=== PATIENT | female | born 1930 | race Caucasian/White ===

== ENCOUNTER 2017-07-27 13:52 | Emergency (ER) | payer MEDICARE ==
[2017-07-27] MEDS ORDERED: Meclizine 25 MG Tab PO ONE (14:18)
--- NOTE | 2017-07-27 14:20 | EDM.PDOC ---
ED HPI GENERAL MEDICAL PROBLEM - General Stated Complaint: DIZZY SPELL Time Seen by Provider: 07/27/17 13:52 Source of Information: Reports: Patient, Family History Limitations: Reports: No Limitations - History of Present Illness INITIAL COMMENTS - FREE TEXT/NARRATIVE: 87 y.o.w.f with a h/o Vertigo was standing at an auction for about 30 min and felt sudden dizzy and past suresh out. Pt did no have LOC. No injuries as the bystanders helped her to sit on a chair. Pt take every morning her meclicine, however, not today. After the event, pt was sitting for a while in the chair till her family brought her the the ed. On arrival, the pt was basically in her usual state of tracie. She was ambulating independent to the ed without help. No N/V/D or any other acute medical issue. BP 168/79 RR 15 Temp 97.5 O2 sat 99 % on RA Pulse 82 Onset Date: 07/27/17 Onset Time: 11:00 Duration: Hour(s): Location: Reports: Generalized Quality: Reports: Same as Previous Episode (5 years ago) Severity: Mild Improves with: Reports: Rest Worsens with: Reports: Movement Context: Reports: Other (standing for 30 min) Associated Symptoms: Reports: Syncope (near syncope) - Related Data Allergies Allergy/AdvReac Type Severity Reaction Status Date / Time No Known Allergies Allergy Verified 07/27/17 14:25 Home Meds: Home Meds Aspirin [Children's Aspirin] 81 mg PO DAILY 01/08/14 [History] Levothyroxine 75 mcg PO DAILY 01/08/14 [History] Multivit-Min/FA/Lycopene/Lut [Centrum Silver] 1 tab PO DAILY 01/08/14 [History] Meclizine [Antivert] 25 mg PO DAILY PRN #30 tablet 07/27/17 [Rx] Meclizine [Antivert] 25 mg PO DAILY PRN #30 tablet 07/27/17 [Rx] Sulfamethoxazole/Trimethoprim [Bactrim Ds Tablet] 1 each PO BID #20 tablet 07/28 [Rx] Social & Family History - Tobacco Use Smoking Status *Q: Never Smoker - Alcohol Use Days Per Week of Alcohol Use: 0 - Recreational Drug Use Recreational Drug Use: No - Living Situation & Occupation Living situation: Reports: Occupation: Retired ED ROS GENERAL - Review of Systems Review Of Systems: See Below Constitutional: Reports: No Symptoms HEENT: Reports: No Symptoms Respiratory: Reports: No Symptoms Cardiovascular: Reports: No Symptoms Endocrine: Reports: No Symptoms GI/Abdominal: Reports: No Symptoms : Reports: No Symptoms Musculoskeletal: Reports: No Symptoms Skin: Reports: No Symptoms Neurological: Reports: Syncope Psychiatric: Reports: No Symptoms Hematologic/Lymphatic: Reports: No Symptoms Immunologic: Reports: No Symptoms - Physical Exam Exam: See Below Exam Limited By: No Limitations General Appearance: Alert, WD/WN, Mild Distress Eye Exam: Bilateral Eye: Nystagmus (Peripherial nystagmus) Ears: Normal External Exam Nose: Normal Inspection Throat/Mouth: Normal Inspection, Normal Lips Head Exam: Atraumatic, Normocephalic Neck: Normal Inspection, Supple, Non-Tender Respiratory/Chest: No Respiratory Distress, Lungs Clear Cardiovascular: Normal Peripheral Pulses, Regular Rate, Rhythm, No Edema, No Gallop, No JVD, No Murmur, No Rub GI/Abdominal: Normal Bowel Sounds, Soft, Non-Tender, No Organomegaly, No Distention, No Abnormal Bruit, No Mass (Female) Exam: Deferred Rectal (Female) Exam: Deferred Neuro Exam (Abbreviated): Alert, Oriented, CN II-XII Intact, Normal Cognition, Normal Gait, No Motor/Sensory Deficits Back Exam: Normal Inspection, Full Range of Motion Extremities: Normal Inspection, Normal Range of Motion, Non-Tender, No Pedal Edema, Normal Capillary Refill Psychiatric: Normal Affect, Normal Mood Skin Exam: Warm, Dry, Intact, Normal Color, No Rash EKG INTERPRETATION EKG Date: 07/27/17 Time: 14:05 Rhythm: NSR Rate (Beats/Min): 82 [place]: Normal P-Wave: Present QRS: Normal ST-T: Normal QT: Normal Comparison: NA - No Prior EKG Course - Vital Signs Text/Narrative:: 87 y.o.w.f with a h/o Vertigo was standing at an auction for about 30 min and felt sudden dizzy and past suresh out. Pt did no have LOC. No injuries as the bystanders helped her to sit on a chair. Pt take every morning her meclicine, however, not today. After the event, pt was sitting for a while in the chair till her family brought her the the ed. On arrival, the pt was basically in her usual state of tracie. She was ambulating independent to the ed without help. No N/V/D or any other acute medical issue. BP 168/79 RR 15 Temp 97.5 O2 sat 99 % on RA Pulse 82 PE: 87 y.o.w.f came with family to the ed after a near syncope, H/O vertigo, elicia peripheral nystagmus Labs: UA pos for Leucocytesterase, Na 133 K 3.8 GFR 42 Gl 162 Imaging: Not indicated Impression: HTN, Vertigo, near syncopal episode Tx: Antivert Reexam: BP improved to 142/78, Nystugmus subsided, pt was in her usual state of health. Plan: D/C with instructions. Last Recorded V/S: Last Vital Signs Temp 36.4 C 07/27/17 13:52 Pulse 82 07/27/17 13:52 Resp 18 07/27/17 13:52 BP 168/79 H 07/27/17 13:52 Pulse Ox 99 07/27/17 13:52 - Orders/Labs/Meds Labs: Laboratory Tests 07/27/17 07/27/17 07/27/17 Range/Units 14:30 14:30 14:30 WBC 6.9 (4.5-12.0) X10-3/uL RBC 4.03 (3.23-5.20) x10(6)uL Hgb 12.6 (11.5-15.5) g/dL Hct 35.7 (30.0-51.3) % MCV 88.6 (80-96) fL MCH 31.3 (27.7-33.6) pg MCHC 35.3 (32.2-35.4) g/dL RDW 12.3 (11.5-15.5) % Plt Count 283 (125-369) X10(3)uL MPV 7.3 L (7.4-10.4) fL Neut % (Auto) 79.1 (46-82) % Lymph % (Auto) 12.5 L (13-37) % [place] % (Auto) 5.9 (4-12) % Eos % (Auto) 2 (1.0-5.0) % Baso % (Auto) 1 (0-2) % Neut # (Auto) 5.5 (1.6-8.3) # Lymph # (Auto) 0.9 (0.6-5.0) # [place] # (Auto) 0.4 (0.0-1.3) # Eos # (Auto) 0.1 (0.0-0.8) # Baso # (Auto) 0.0 (0.0-0.2) # Sodium 133 L (135-145) mmol/L Potassium 4.0 (3.5-5.3) mmol/L Chloride 96 L (100-110) mmol/L Carbon Dioxide 30 (21-32) mmol/L BUN 20 H (7-18) mg/dL Creatinine 1.2 H (0.55-1.02) mg/dL Est Cr Clr Drug Dosing TNP Estimated GFR (MDRD) 42 L (>60) BUN/Creatinine Ratio 16.7 (9-20) Glucose 147 H (80-116) mg/dL Calcium 9.1 (8.6-10.2) mg/dL Creatine Kinase 72 (60-160) IU/L Troponin I < 0.017 L (<0.017-0.056) ng/mL NT-Pro-B Natriuret Pep 95 (<=450) pg/mL TSH, Ultra Sensitive 1.13 (0.36-3.74) IU/mL Urine Color (YELLOW) Urine Appearance (CLEAR) Urine pH (5.0-6.5) Ur Specific [place] (1.010-1.025) Urine Protein (NEGATIVE) mg/dL Urine Glucose (UA) (NEGATIVE) mg/dL Urine Ketones (NEGATIVE) mg/dL Urine Occult Blood (NEGATIVE) Urine Nitrite (NEGATIVE) Urine Bilirubin (NEGATIVE) Urine Urobilinogen (NEGATIVE) mg/dL Ur Leukocyte Esterase (NEGATIVE) Urine RBC (0) Urine WBC (0) Ur Squamous Epith Cells (NS,R,O) Urine Bacteria (NS) 07/27/17 Range/Units 14:43 WBC (4.5-12.0) X10-3/uL RBC (3.23-5.20) x10(6)uL Hgb (11.5-15.5) g/dL Hct (30.0-51.3) % MCV (80-96) fL MCH (27.7-33.6) pg MCHC (32.2-35.4) g/dL RDW (11.5-15.5) % Plt Count (125-369) X10(3)uL MPV (7.4-10.4) fL Neut % (Auto) (46-82) % Lymph % (Auto) (13-37) % [place] % (Auto) (4-12) % Eos % (Auto) (1.0-5.0) % Baso % (Auto) (0-2) % Neut # (Auto) (1.6-8.3) # Lymph # (Auto) (0.6-5.0) # [place] # (Auto) (0.0-1.3) # Eos # (Auto) (0.0-0.8) # Baso # (Auto) (0.0-0.2) # Sodium (135-145) mmol/L Potassium (3.5-5.3) mmol/L Chloride (100-110) mmol/L Carbon Dioxide (21-32) mmol/L BUN (7-18) mg/dL Creatinine (0.55-1.02) mg/dL Est Cr Clr Drug Dosing Estimated GFR (MDRD) (>60) BUN/Creatinine Ratio (9-20) Glucose (80-116) mg/dL Calcium (8.6-10.2) mg/dL Creatine Kinase (60-160) IU/L Troponin I (<0.017-0.056) ng/mL NT-Pro-B Natriuret Pep (<=450) pg/mL TSH, Ultra Sensitive (0.36-3.74) IU/mL Urine Color Yellow (YELLOW) Urine Appearance Clear (CLEAR) Urine pH 7.0 H (5.0-6.5) Ur Specific [place] 1.010 (1.010-1.025) Urine Protein Negative (NEGATIVE) mg/dL Urine Glucose (UA) Normal (NEGATIVE) mg/dL Urine Ketones Negative (NEGATIVE) mg/dL Urine Occult Blood Negative (NEGATIVE) Urine Nitrite Negative (NEGATIVE) Urine Bilirubin Negative (NEGATIVE) Urine Urobilinogen Normal (NEGATIVE) mg/dL Ur Leukocyte Esterase Moderate H (NEGATIVE) Urine RBC 0-5 (0) Urine WBC 0-5 (0) Ur Squamous Epith Cells Few H (NS,R,O) Urine Bacteria Few H (NS) Meds: Medications Discontinued Medications Generic Name Dose Route Start Last Admin Trade Name Freq PRN Reason Stop Dose Admin Meclizine HCl 25 mg 07/27/17 14:18 07/27/17 14:30 Antivert PO 07/27/17 14:19 25 mg ONETIME ONE Administration Departure - Departure Time of Disposition: 15:14 Disposition: Home, Self-Care 01 Condition: Good Clinical Impression: Near syncope, Dehydration, Vertigo UTI (urinary tract infection) Qualifiers: Urinary tract infection type: acute cystitis Hematuria presence: without hematuria Qualified Code(s): N30.00 - Acute cystitis without hematuria - Discharge Information Prescriptions: Meclizine [Antivert] 25 mg PO DAILY PRN #30 tablet PRN Reason: for Dizziness Meclizine [Antivert] 25 mg PO DAILY PRN #30 tablet PRN Reason: Dizziness Sulfamethoxazole/Trimethoprim [Bactrim Ds Tablet] 1 each PO BID #20 tablet Instructions: Meclizine tablets or capsules, Vertigo, [id number], Near- Syncope, [id number], Dehydration, Adult, [id number] Referrals: Lili Pena, DIRECTOR PERIOPERATIVE [Primary Care Provider] - Forms: ED Department Discharge Additional Instructions: Please increase water intake, take Meclizine and cipro as recommended, please f /u up with your PMD for blood pressure meds adjustment, please come back to the ed if your symptoms get worse acutely
== END 2017-07-27 15:45 | disposition home or self-care (01) ==
LOC: FB.ED 13:52
DX: I10 Essential (primary) hypertension (principal); R55 Syncope and collapse; N39.0 Urinary tract infection, site not specified; E86.0 Dehydration; Z79.899 Other long term (current) drug therapy
CPT/HCPCS: 36415; 80048; 81001; 82550; 83880; 84443; 84484; 85025; 93005; 99284; A9270